=== PATIENT | female | born 1995 | race Caucasian/White ===

== ENCOUNTER → 2016-10-26 | Outpatient (CLI) | payer BC ==
[~2016-10-26] MED LIST: ALBUTEROL0.09 MG/A2 INH; FLOVENT0.044 MG/A INH; IBU-6600 MG PO; MEDROL DOSEPAK4 MG PO; MOTRIN400 MG PO; MOTRIN600 MG PO; MOTRIN800 MG PO; Miralax Powder255 GM PO; NAPROSYN500 MG PO; NKHM; PEN-VK500 MG PO; QVAR 40MCG7.3 G1 INH; VICODIN 5/500 505 MG PO
[2016-10-26 12:22] LABS: FREE T4 1.06 ng/dl (0.76-1.46)
[2016-10-26 12:28] LABS: THYROID STIM HORMONE (HS) 4.19 uIU/ml (0.358-4.75)
== END | disposition home or self-care (01) ==
LOC: LAB 11:16
PROVIDERS: Nurse Practitioner Family
DX: E03.9 Hypothyroidism, unspecified (principal)

== ENCOUNTER → 2017-01-01 | Outpatient (CLI) | payer BC ==
[2017-01-01 13:41] LABS: FREE T4 1.21 ng/dl (0.76-1.46)
[2017-01-01 13:47] LABS: THYROID STIM HORMONE (HS) 2.13 uIU/ml (0.358-4.75)
== END | disposition home or self-care (01) ==
LOC: LAB 12:43
PROVIDERS: Nurse Practitioner Family
DX: E03.9 Hypothyroidism, unspecified (principal)

== ENCOUNTER → 2017-03-19 | Outpatient (CLI) | payer BC | END | disposition home or self-care (01) | LOC: ORTHO 02:41 | DX: M25.561 Pain in right knee (principal) ==

== ENCOUNTER → 2017-05-08 | Outpatient (CLI) | payer OTHER ==
[2017-05-08 15:04] LABS: FREE T4 0.96 ng/dl (0.76-1.46)
[2017-05-08 15:09] LABS: THYROID STIM HORMONE (HS) 7.04 uIU/ml (0.358-4.75)
== END | disposition home or self-care (01) ==
LOC: ORTHO 00:39 → LAB 00:39 → ORTHO 16:45
PROVIDERS: Nurse Practitioner Family
DX: E03.9 Hypothyroidism, unspecified (principal)

== ENCOUNTER → 2017-07-24 | Outpatient (CLI) | payer OTHER ==
[2017-07-24 10:41] LABS: FREE T4 1.22 ng/dl (0.76-1.46)
[2017-07-24 10:52] LABS: THYROID STIM HORMONE (HS) 2.89 uIU/ml (0.358-4.75)
== END | disposition home or self-care (01) ==
LOC: LAB 08:39
PROVIDERS: Nurse Practitioner Family
DX: E03.9 Hypothyroidism, unspecified (principal)

== ENCOUNTER → 2018-01-15 | Outpatient (CLI) | payer OTHER ==
[2018-01-15 16:34] LABS: FREE T4 1.2 ng/dl (0.76-1.46); THYROID STIM HORMONE (HS) 2.67 uIU/ml (0.358-4.75)
== END ==
LOC: LAB 14:57
PROVIDERS: Nurse Practitioner Family
DX: E03.9 Hypothyroidism, unspecified (principal)

== ENCOUNTER → 2018-01-23 | Outpatient (CLI) | payer OTHER | END | disposition home or self-care (01) | LOC: MRI 00:49 | DX: G44.229 Chronic tension-type headache, not intractable (principal) ==

== ENCOUNTER 2019-06-05 15:25 | Emergency (ER) | payer OTHER ==
[~2019-06-05] VITALS: Ht 167.6 cm; Wt 88.5 kg
[2019-06-05 15:37] VITALS: BP 122/48
[2019-06-05] MEDS ORDERED: PROVENTIL HFA6.7 GM INH (17:14)
[2019-06-05] MEDS ORDERED: GUAIFEN-CODEINE10 ML PO (17:17)
== END 2019-06-05 17:20 | disposition home or self-care (01) ==
LOC: ED 15:25
DX: B34.9 Viral infection, unspecified (principal); J45.909 Unspecified asthma, uncomplicated; Z79.899 Other long term (current) drug therapy

== ENCOUNTER → 2021-04-25 | Outpatient (CLI) | payer OTHER ==
[~2021-04-25] MED LIST changes: +GUAIFEN-CODEINE10 ML PO; +PROVENTIL HFA6.7 GM INH
== END | disposition home or self-care (01) ==
LOC: COVID19 16:16
PROVIDERS: ATTEND Internal Medicine
DX: U07.1 COVID-19 (principal)

== ENCOUNTER → 2022-02-09 | Outpatient (CLI) | payer OTHER ==
[2022-02-09 10:03] LABS: BASO % 0.2 % (0.0-1.0); HEMATOCRIT 42.3 % (37.0-47.0); LYMPH # 1.7 10*3/uL (1.3-4.4); LYMPH % 37.4 % (27.0-41.0); MEAN CELL VOLUME 86.2 fl (81.0-99.0); MEAN CORPUSCULAR HGB 28.7 pg (27.0-31.0); MEAN CORPUSCULAR HGB CONC 33.3 g/dl (33.0-37.0); MONO # 0.4 10*3/uL (0.1-1.0); MONO % 7.9 % (3.0-9.0); NEUT # 2.5 10*3/uL (2.3-7.9); NEUT % 54.3 % (47.0-73.0); PLATELET COUNT AUTOMATED 232 10*3/uL (130-400); RED BLOOD COUNT 4.91 10*6/uL (4.10-5.10); RED CELL DISTRI WIDTH 12.4 % (0-14.5); WHITE BLOOD COUNT 4.6 10*3/uL (4.8-10.8)
[2022-02-09 11:28] LABS: VITAMIN D, 25-HYDROXY 25.7 ng/mL (30-100)
== END | disposition home or self-care (01) ==
LOC: LAB 09:38
PROVIDERS: ATTEND Physical Therapist
DX: E03.9 Hypothyroidism, unspecified (principal); R53.83 Other fatigue; R73.9 Hyperglycemia, unspecified

== ENCOUNTER 2024-04-28 13:22 | Emergency (ER) | payer OTHER ==
[2024-04-28 13:32] VITALS: BP 119/73
[2024-04-28] MEDS ORDERED: LISSAMINE GREEN 1.5 MG STRIP OP ONE (14:00)
[2024-04-28] MEDS ORDERED: Tetracaine Hydrochloride 0.5% 4 ML BOT OPH ONE (14:00)
[2024-04-28] MEDS ORDERED: ERYTHROMYCIN OPH1 GM OPH (14:22)
[2024-04-28] MEDS ORDERED: ERYTHROMYCIN 1 GM TUBE OPH ONE (14:25)
== END 2024-04-28 14:35 | disposition home or self-care (01) ==
LOC: ED 13:22
DX: S05.02XA Injury of conjunctiva and corneal abrasion without foreign body, left eye, initial encounter (principal); J45.909 Unspecified asthma, uncomplicated; Z98.890 Other specified postprocedural states; X58.XXXA Exposure to other specified factors, initial encounter; Y93.89 Activity, other specified; Y92.89 Other specified places as the place of occurrence of the external cause; Y99.0 Civilian activity done for income or pay

== ENCOUNTER 2025-01-02 01:36 | Emergency (ER) | payer SELFPAY ==
[~2025-01-02] VITALS: Ht 167.6 cm; Wt 95.3 kg
[~2025-01-02 01:36] MED LIST changes: +ERYTHROMYCIN OPH1 GM OPH
[2025-01-02 01:52] VITALS: BP 104/68
[2025-01-02] MEDS ORDERED: PERCOCET 5-3251 EACH PO (03:47)
== END 2025-01-02 04:08 | disposition home or self-care (01) ==
LOC: ED 01:36
DX: S82.492A Other fracture of shaft of left fibula, initial encounter for closed fracture (principal); Z79.899 Other long term (current) drug therapy; Z98.890 Other specified postprocedural states; X50.9XXA Other and unspecified overexertion or strenuous movements or postures, initial encounter; Y93.89 Activity, other specified; Y92.89 Other specified places as the place of occurrence of the external cause; Y99.8 Other external cause status

== ENCOUNTER 2025-01-08 15:45 | Emergency (ER) | payer SELFPAY ==
[~2025-01-08] VITALS: Ht 167.6 cm; Wt 97.5 kg
[~2025-01-08 15:45] MED LIST changes: +PERCOCET 5-3251 EACH PO
[2025-01-08 16:03] VITALS: BP 107/73
[2025-01-08] MEDS ORDERED: METHOCARBAMOL750 M1 PO (17:05)
== END 2025-01-08 17:13 | disposition home or self-care (01) ==
LOC: ED 15:45
DX: S82.402A Unspecified fracture of shaft of left fibula, initial encounter for closed fracture (principal); S86.912A Strain of unspecified muscle(s) and tendon(s) at lower leg level, left leg, initial encounter; J45.909 Unspecified asthma, uncomplicated; X58.XXXA Exposure to other specified factors, initial encounter; Y93.89 Activity, other specified; Y92.89 Other specified places as the place of occurrence of the external cause; Y99.8 Other external cause status

== ENCOUNTER → 2025-01-10 | Outpatient (CLI) | payer SELFPAY ==
[~2025-01-10] MED LIST changes: +METHOCARBAMOL750 M1 PO
== END | disposition home or self-care (01) ==
LOC: MRI 01:45
PROVIDERS: ATTEND Orthopaedic Surgery
DX: S82.142A Displaced bicondylar fracture of left tibia, initial encounter for closed fracture (principal); M24.20 Disorder of ligament, unspecified site; X58.XXXA Exposure to other specified factors, initial encounter; Y93.89 Activity, other specified; Y92.89 Other specified places as the place of occurrence of the external cause; Y99.8 Other external cause status

== ENCOUNTER → 2025-01-19 | Outpatient (CLI) | payer MEDICAID | END | disposition home or self-care (01) | LOC: ORTHO 01:34 | PROVIDERS: ATTEND Orthopaedic Surgery | DX: S82.135A Nondisplaced fracture of medial condyle of left tibia, initial encounter for closed fracture (principal); X58.XXXA Exposure to other specified factors, initial encounter; Y93.89 Activity, other specified; Y92.89 Other specified places as the place of occurrence of the external cause; Y99.8 Other external cause status ==

== ENCOUNTER → 2025-02-09 | Outpatient (CLI) | payer OTHER | END | disposition home or self-care (01) | LOC: ORTHO 03:14 | PROVIDERS: ATTEND Orthopaedic Surgery | DX: S82.832A Other fracture of upper and lower end of left fibula, initial encounter for closed fracture (principal); S82.492A Other fracture of shaft of left fibula, initial encounter for closed fracture; S82.135A Nondisplaced fracture of medial condyle of left tibia, initial encounter for closed fracture; X58.XXXA Exposure to other specified factors, initial encounter; Y93.89 Activity, other specified; Y92.89 Other specified places as the place of occurrence of the external cause; Y99.8 Other external cause status ==

== ENCOUNTER → 2025-03-02 | Outpatient (CLI) | payer OTHER | END | disposition home or self-care (01) | LOC: ORTHO 01:13 | PROVIDERS: ATTEND Orthopaedic Surgery | DX: S82.135A Nondisplaced fracture of medial condyle of left tibia, initial encounter for closed fracture (principal); S82.492A Other fracture of shaft of left fibula, initial encounter for closed fracture; X58.XXXA Exposure to other specified factors, initial encounter; Y93.89 Activity, other specified; Y92.89 Other specified places as the place of occurrence of the external cause; Y99.8 Other external cause status ==

== ENCOUNTER → 2025-03-09 | Outpatient (CLI) | payer OTHER | END | disposition home or self-care (01) | LOC: ORTHO 01:28 | PROVIDERS: ATTEND Orthopaedic Surgery | DX: S82.135A Nondisplaced fracture of medial condyle of left tibia, initial encounter for closed fracture (principal); S82.492A Other fracture of shaft of left fibula, initial encounter for closed fracture; X58.XXXA Exposure to other specified factors, initial encounter; Y93.89 Activity, other specified; Y92.89 Other specified places as the place of occurrence of the external cause; Y99.8 Other external cause status ==